=== PATIENT | male | born 1975 | race Caucasian/White ===

== ENCOUNTER 2022-03-21 16:50 | Emergency (ER) | payer BC ==
[~2022-03-21] VITALS: Ht 195.6 cm; Wt 181.4 kg
[2022-03-21 17:48] LABS: BASOPHILS ABSOLUTE AUTO 0.08 K/mm3 (0.00-0.23); BASOPHILS PERCENT AUTO 1 % (0-2); EOSINOPHILS ABSOLUTE AUTO 0.18 K/mm3 (0.00-0.68); EOSINOPHILS PERCENT AUTO 1 % (0-6); Hematocrit 47.3 % (37.0-53.0); Hemoglobin 15.9 g/dL (13.5-17.5); IMMATURE GRAN ABSOLUTE AUTO 0.12 K/mm3 (0.00-0.10); IMMATURE GRAN PERCENT AUTO 1 % (0-1); LYMPHOCYTES ABSOLUTE AUTO 2.36 K/mm3 (0.84-5.20); LYMPHOCYTES PERCENT AUTO 19 % (21-46); MONOCYTES ABSOLUTE AUTO 0.78 K/mm3 (0.16-1.47); MONOCYTES PERCENT AUTO 6 % (4-13); Mean Corpuscular HGB 27.8 pg (26.0-34.0); Mean Corpuscular HGB Conc 33.6 g/dL (31.5-36.5); Mean Corpuscular Volume 83 fL (80-100); Mean Platelet Volume 11.1 fL (9.1-12.4); NEUTROPHILS ABSOLUTE AUTO 8.95 K/mm3 (1.96-9.15); NEUTROPHILS PERCENT AUTO 72 % (41-73); Platelet Count 258 K/mm3 (150-400); RDW Coefficient Variation 14.2 % (11.7-14.2); RDW Standard Deviation 42.6 fL (35.1-46.3); Red Blood Cell Count 5.71 M/mm3 (4.30-5.90); White Blood Cell Count 12.47 K/mm3 (4.00-11.30)
[2022-03-21 18:14] LABS: Albumin, Blood 3.9 g/dL (3.4-5.0); Bilirubin, Total 0.5 mg/dL (0.1-1.0); Bun/Creatinine Ratio 12.7 (12.0-20.0); Calcium, Blood 10.1 mg/dL (8.5-10.1); Creatinine, Blood 1.18 mg/dL (0.60-1.20); Globulin, Blood 3.9 g/dL (2.2-4.0); Potassium, Blood 4.2 mmol/L (3.5-5.5); Total Protein, Blood 7.8 g/dL (6.4-8.2)
[2022-03-21 19:48] LABS: Source, Urine Clean Catch
[2022-03-21 19:51] LABS: Appearance, Urine Hazy (Clear); Bilirubin, Urine Neg (Neg); Blood, Urine 5+ (Neg); Color, Urine Yellow (P-Yellow); Glucose Qualitative, Urine 1+ (Neg); Ketones, Urine 3+ (Neg); Leukocyte Esterase, Urine Neg (Neg); Nitrite, Urine Neg (Neg); Protein, Urine 2+ (Neg); Specific Gravity, Urine 1.025 (1.003-1.022); Urobilinogen, Urine NORM (Normal)
[2022-03-21 19:59] LABS: Uric Acid Crystals Many /hpf
[2022-03-21 20:00] LABS: Bacteria Few /hpf; Red Blood Cells, Urine 25-50 /hpf (0-2); Squamous Epithelial Cells Few /hpf (Few)
== END 2022-03-21 20:57 | disposition home or self-care (01) ==
LOC: ER 16:50
PROVIDERS: Student in an Organized Health Care Education/Training Program
DX: N13.2 Hydronephrosis with renal and ureteral calculous obstruction (principal); R91.8 Other nonspecific abnormal finding of lung field
CPT/HCPCS: 74177; 80053; 81001; 85025; 96374-59; 96375; 99284-25; A9270; J1885; J2405; Q9967

== ENCOUNTER 2022-07-04 18:01 | Inpatient (IN) | payer BC ==
[~2022-07-04] VITALS: Ht 195.6 cm; Wt 168.7 kg
[2022-07-04 18:46] LABS: BASOPHILS PERCENT AUTO 1 % (0-2); EOSINOPHILS ABSOLUTE AUTO 0.13 K/mm3 (0.00-0.68); EOSINOPHILS PERCENT AUTO 2 % (0-6); Hematocrit 45.1 % (37.0-53.0); Hemoglobin 15.8 g/dL (13.5-17.5); IMMATURE GRAN ABSOLUTE AUTO 0.07 K/mm3 (0.00-0.10); IMMATURE GRAN PERCENT AUTO 1 % (0-1); LYMPHOCYTES ABSOLUTE AUTO 2.42 K/mm3 (0.84-5.20); LYMPHOCYTES PERCENT AUTO 30 % (21-46); MONOCYTES ABSOLUTE AUTO 0.66 K/mm3 (0.16-1.47); MONOCYTES PERCENT AUTO 8 % (4-13); Mean Corpuscular HGB 28.5 pg (26.0-34.0); Mean Corpuscular Volume 81 fL (80-100); Mean Platelet Volume 11.4 fL (9.1-12.4); NEUTROPHILS ABSOLUTE AUTO 4.66 K/mm3 (1.96-9.15); NEUTROPHILS PERCENT AUTO 58 % (41-73); Platelet Count 221 K/mm3 (150-400); RDW Coefficient Variation 14.5 % (11.7-14.2); RDW Standard Deviation 42.9 fL (35.1-46.3); Red Blood Cell Count 5.54 M/mm3 (4.30-5.90); White Blood Cell Count 8.04 K/mm3 (4.00-11.30)
[2022-07-04] MEDS ORDERED: EUTHYROX150 MC1 PO (18:53)
[2022-07-04] MEDS ORDERED: [UNRECOGNIZED DRUG - CODE] PO (18:53)
[2022-07-04 19:36] LABS: Albumin, Blood 3.7 g/dL (3.4-5.0); Beta-hydroxybutyrate 46.5 mg/dL (0.2-2.8); Bilirubin, Total 0.8 mg/dL (0.1-1.0); Bun/Creatinine Ratio 11.4 (12.0-20.0); Calcium, Blood 8.7 mg/dL (8.5-10.1); Creatinine, Blood 0.79 mg/dL (0.60-1.20); Globulin, Blood 3.7 g/dL (2.2-4.0); Potassium, Blood 3.2 mmol/L (3.5-5.5); Total Protein, Blood 7.4 g/dL (6.4-8.2)
[2022-07-04 21:40] LABS: Source, Urine Clean Catch
[2022-07-04 21:43] LABS: Bilirubin, Urine Neg (Neg); Blood, Urine 1+ (Neg); Glucose Qualitative, Urine 4+ (Neg); Ketones, Urine 4+ (Neg); Leukocyte Esterase, Urine Neg (Neg); Nitrite, Urine Neg (Neg); Protein, Urine 1+ (Neg); Urobilinogen, Urine NORM (Normal)
[2022-07-04 21:55] LABS: Appearance, Urine Clear (Clear); Color, Urine Pale Yellow (P-Yellow)
[2022-07-04 21:56] LABS: Bacteria Not Seen /hpf; Red Blood Cells, Urine 0-2 /hpf (0-2); Squamous Epithelial Cells Not Seen /hpf (Few); White Blood Cells, Urine Not Seen /hpf (0-5)
--- NOTE | 2022-07-04 22:16 | NUR ---
ARRIVAL TO ICU PT TRANSFERS TO ICU [facility] WITH STANDBY ASSIST. HE IS RECEIVING INSULIN 8.2UNITS/HR, KCL AND NS AT THIS TIME. HE IS A&OX4, ANSWERS MEDICAL HISTORY AND ADMISSION QUESTIONS. HE DENIES PAIN OR DISCOMFORT AT THIS TIME. PT STS HE HAS LOST APPROX 60LBS SINCE MARCH DUE TO DIET AND LACK OF APPETITE. HE HAS BEEN TOLD HE IS "PREDIABETIC" AND WAS GIVEN METFORMIN BUT PT'S MEDICATION USE IS INCONSISTENT. HE REPORTS OVER THE LAST WEEK HE HAS FELT CLAMMY/DIAPHORETIC, FATIGUED, POLYDIPSIA AND POLYURIA. PT DENIES SYMPTOMS AT THIS TIME. VSS. SEE SHIFT ASSESSMENT.
[2022-07-04 22:51] LABS: Bun/Creatinine Ratio 14.7 (12.0-20.0); Calcium, Blood 8.1 mg/dL (8.5-10.1); Creatinine, Blood 0.68 mg/dL (0.60-1.20); Potassium, Blood 3.1 mmol/L (3.5-5.5)
[2022-07-05 03:20] LABS: Bun/Creatinine Ratio 14.7 (12.0-20.0); Calcium, Blood 7.5 mg/dL (8.5-10.1); Creatinine, Blood 0.61 mg/dL (0.60-1.20); Potassium, Blood 3.3 mmol/L (3.5-5.5)
--- NOTE | 2022-07-05 05:59 | NUR ---
SHIFT SUMMARY PT REMAINS ON INSULIN GTT AT 2UNITS/HR WITH D5 1/2NS AT 200ML/HR. HE IS A&OX4. DENIES PAIN OR DISCOMFORT. SPO2 >95% ON RA, RR 16-22, DENIES SOB. SINUS RHTYHM ON MONITOR WITH RATE 70S. SBP 140S-160S. BOWEL TONES HYPOACTIVE, ABDOMEN SOFT. PT DENIES NAUSEA OR GI UPSET. PT USES URINAL INDEPENDENTLY WITH SHIFT OUTPUT OF 1150ML OF CLEAR/YELLOW URINE. PT REPORTS FEELING "BETTER". PROVIDED SMALL CUP OF ICE WATER. PERIPHERAL IVS TO RH, RAC, AND LFA. VSS. WILL REPORT TO ONCOMING RN.
[2022-07-05 06:36] LABS: Bun/Creatinine Ratio 10.4 (12.0-20.0); Calcium, Blood 7.4 mg/dL (8.5-10.1); Creatinine, Blood 0.68 mg/dL (0.60-1.20)
[2022-07-05 10:58] LABS: Bun/Creatinine Ratio 10.3 (12.0-20.0); Creatinine, Blood 0.58 mg/dL (0.60-1.20); Potassium, Blood 3.1 mmol/L (3.5-5.5)
--- NOTE | 2022-07-05 11:10 | NUR ---
CALLED DR. MARTINEZ WITH LAB RESULTS. NEW ORDERS TO REPEAT LABS IN 4HRS. NOTIFIED OF POTASSIUM BUT PT IS STILL RECEIVING POTASSIUM IV.
[2022-07-05 14:12] LABS: Calcium, Blood 7.6 mg/dL (8.5-10.1); Creatinine, Blood 0.56 mg/dL (0.60-1.20); Potassium, Blood 2.9 mmol/L (3.5-5.5)
--- NOTE | 2022-07-05 14:19 | NUR ---
CALLED DR. MARTINEZ WITH 1400 LABS. NEW ORDERS FOR REPEAT BMP IN 4HRS AND KCL 40MEQ IV. PT REMAINS NPO CO2 IS STILL LOW.
--- NOTE | 2022-07-05 18:13 | NUR ---
SUMMARY PT A/O X4. DENIES PAIN OUTSIDE OF HIS NORMAL BACK DISCOMFORT. DIABETIC EDUCATION T/O THE DAY. PT HAS LOTS OF PERTINENT QUESTIONS ABOUT NEW DIAGNOSIS. PT IS UP IN ROOM INDEP. PT HAS NOT BEEN BRIDGED FROM INSULIN GTT DUE TO CO2 STILL BEING LOW. ANOTHER BMP IS TO BE DRAWN NOW. NO ACUTE CHANGES THIS SHIFT.
[2022-07-05 18:49] LABS: Bun/Creatinine Ratio 7.3 (12.0-20.0); Calcium, Blood 8.1 mg/dL (8.5-10.1); Creatinine, Blood 0.55 mg/dL (0.60-1.20); Potassium, Blood 3.1 mmol/L (3.5-5.5)
--- NOTE | 2022-07-05 19:15 | NUR ---
ASSUMPTION OF CARE PT RESTING IN BED WITH SPOUSE AT BEDSIDE. HE REMAINS ON INSULIN GTT AT 7UNITS/HR AND D5 1/2NS AT 150ML/HR. HE IS A&OX4. DENIES NAUSEA. PT INDEPENDENTLY USES URINAL. VSS AT THIS TIME. SEE SHIFT ASSESSMENT.
--- NOTE | 2022-07-05 21:00 | NUR ---
UPDATE CALL PLACED TO HOSPITALIST TO UPDATE ON PT CONDITION. PLAN TO STOP INSULIN GTT AND D5 1/2NS. ORDER RECEIVED FOR INSULIN GLARGINE AND HUMALOG MEDIUM SLIDING SCALE. CBG CHECKS Q4. ADA DIET.
[2022-07-05 22:43] LABS: Bilirubin, Total 0.5 mg/dL (0.1-1.0); Bun/Creatinine Ratio 5.1 (12.0-20.0); Calcium, Blood 7.9 mg/dL (8.5-10.1); Creatinine, Blood 0.59 mg/dL (0.60-1.20); Potassium, Blood 2.8 mmol/L (3.5-5.5)
[2022-07-06 04:11] LABS: Albumin, Blood 2.8 g/dL (3.4-5.0); Anion Gap 8 mmol/L (6-16); Blood Urea Nitrogen 6 mg/dL (8-24); CO2, Blood 23 mmol/L (21-32); Calcium, Blood 8.4 mg/dL (8.5-10.1); Chloride, Blood 107 mmol/L (98-108); Glomerular Filtration Rate 120 (60-); Glucose, Blood 226 mg/dL (70-99); Phosphorus, Blood 1.8 mg/dL (2.5-4.9); Sodium, Blood 138 mmol/L (136-145)
--- NOTE | 2022-07-06 05:50 | NUR ---
SHIFT SUMMARY PT HAS BEEN OFF OF INSULIN GTT AND D5 1/2NS SINCE 2300 LAST NIGHT. HE RECEIVED 10UNITS INSULIN GLARGINE AND ATE DINNER. PLAN FOR MEDIUM SLIDING SCALE TO BEGIN THIS AM. PT HAS SLEPT THROUGH MOST OF THE NIGHT. HE IS A&OX4. REPORTS FEELING BETTER SINCE MEAL. HE REPOSITIONS HIMSELF AND USES THE URINAL INDEPENDENTLY. VSS THROUGHOUT SHIFT. ORDER RECEIVED FOR K PHOS THIS AM. PT CHANGED TO MED WITH TELE STATUS. BED IN LOW POSITION, CALL LIGHT WITHIN REACH. WILL REPORT TO ONCOMING RN.
--- NOTE | 2022-07-06 07:30 | NUR ---
ASSUMED CARE: PT RESTING QUIETLY, NSR ON TELE. OFF OF INSULIN GTT PER NIGHT RN SINCE 11PM LAST NIGHT. NO ACUTE NEEDS OR CONCERNS AT THIS TIME.
[2022-07-06] MEDS ORDERED: HUMALOG KW100 UNIT/1 SC (10:50)
[2022-07-06] MEDS ORDERED: INSULIN GL100 UNIT/3 SC (10:51)
--- NOTE | 2022-07-06 14:30 | NUR ---
DISCHARGE: PT'S COLLECTED HIS GLUCOMETER FROM PHARMACY AND PT AND LOOKED IT OVER TO DETERMINE HOW COMFORTABLE THEY WERE WITH IT. PROVIDED DIABETIC EDUCATION AND PT AND REVIEWED THE PAPERWORK. DISCUSSED DIABETIC DIET AND COMPLEX CARB/SIMPLE CARBS, SICK DAYS, TO CHECK CBG AC/HS. PT DEMONSTRATED INSULIN ADMINISTRATION. PROVIDED PT WITH [employer]'S NUMBER SO THEY CAN CALL AND ASK ABOUT DIABETIC EDUCATION AND ENDOCRINOLOGY CONSULT. PT AMBULATORY UPON DISCHARGE. DENIED FURTHER NEEDS OR QUESTIONS.
== END 2022-07-06 13:50 | disposition home or self-care (01) | DRG 638 ==
LOC: ER 18:01 → ICUW 21:25 → ICUE 21:25
PROVIDERS: Family Medicine; Internal Medicine; Physician Assistant; ADMIT Hospitalist
DX: E11.10 Type 2 diabetes mellitus with ketoacidosis without coma (principal); E87.1 Hypo-osmolality and hyponatremia; E87.6 Hypokalemia; E03.9 Hypothyroidism, unspecified; E83.39 Other disorders of phosphorus metabolism; Z87.442 Personal history of urinary calculi; G89.29 Other chronic pain; M54.59 Other low back pain; Z87.891 Personal history of nicotine dependence; Z79.84 Long term (current) use of oral hypoglycemic drugs
CPT/HCPCS: 36415; 80048; 80053; 80069; 81001; 82010; 82947; 84132; 84443; 84484; 85025; 93005; 93010; 96361; 96365; 96366; 99285-25; A9270; J1650; J1815; J3480; J7030; J7042; J7050; J7060

== ENCOUNTER → 2022-07-04 | Outpatient (CLI) | payer BC ==
[~2022-07-04] MED LIST: EUTHYROX150 MC1 PO; HUMALOG KW100 UNIT/1 SC; INSULIN GL100 UNIT/3 SC; [UNRECOGNIZED DRUG - CODE] PO
[2022-07-04 16:18] LABS: BASOPHILS ABSOLUTE AUTO 0.08 K/mm3 (0.00-0.23); BASOPHILS PERCENT AUTO 1 % (0-2); EOSINOPHILS ABSOLUTE AUTO 0.13 K/mm3 (0.00-0.68); EOSINOPHILS PERCENT AUTO 2 % (0-6); Hematocrit 45.5 % (37.0-53.0); Hemoglobin 15.9 g/dL (13.5-17.5); IMMATURE GRAN ABSOLUTE AUTO 0.07 K/mm3 (0.00-0.10); IMMATURE GRAN PERCENT AUTO 1 % (0-1); LYMPHOCYTES ABSOLUTE AUTO 2.38 K/mm3 (0.84-5.20); LYMPHOCYTES PERCENT AUTO 32 % (21-46); MONOCYTES ABSOLUTE AUTO 0.56 K/mm3 (0.16-1.47); MONOCYTES PERCENT AUTO 8 % (4-13); Mean Corpuscular HGB 28.6 pg (26.0-34.0); Mean Corpuscular HGB Conc 34.9 g/dL (31.5-36.5); Mean Corpuscular Volume 82 fL (80-100); Mean Platelet Volume 11.4 fL (9.1-12.4); NEUTROPHILS ABSOLUTE AUTO 4.26 K/mm3 (1.96-9.15); NEUTROPHILS PERCENT AUTO 57 % (41-73); Platelet Count 223 K/mm3 (150-400); RDW Coefficient Variation 14.7 % (11.7-14.2); RDW Standard Deviation 43.3 fL (35.1-46.3); Red Blood Cell Count 5.56 M/mm3 (4.30-5.90); White Blood Cell Count 7.48 K/mm3 (4.00-11.30)
[2022-07-04 17:35] LABS: Albumin, Blood 3.8 g/dL (3.4-5.0); Bilirubin, Total 0.6 mg/dL (0.1-1.0); Bun/Creatinine Ratio 13.9 (12.0-20.0); Calcium, Blood 8.6 mg/dL (8.5-10.1); Creatinine, Blood 0.72 mg/dL (0.60-1.20); Globulin, Blood 3.8 g/dL (2.2-4.0); Potassium, Blood 3.1 mmol/L (3.5-5.5); Total Protein, Blood 7.6 g/dL (6.4-8.2)
== END | disposition home or self-care (01) ==
LOC: LAB 16:11 → LAB SHORT 16:11
PROVIDERS: Physician Assistant
DX: R73.9 Hyperglycemia, unspecified (principal)
CPT/HCPCS: 80053; 83036; 85025